=== PATIENT | male | born 2005 | race Caucasian/White ===

== ENCOUNTER 2024-02-26 14:38 | Emergency (ER) | payer MEDICAID, SELFPAY ==
[2024-02-26 14:50] VITALS: BP 132/79; PULSE 105; RESP 16; TEMP 37.9; O2SAT 98; BMI 19.2
--- NOTE | 2024-02-26 15:03 | ED.GENADULT ---
HPI - General Adult General Date Seen: 02/26/24 Chief complaint: Ear/Nose/Throat Problem Stated complaint: L ear pain Time Seen by Provider: 02/26/24 14:56 Source: patient Mode of arrival: ambulatory Limitations: no limitations History of Present Illness HPI narrative: Patient is a generally healthy 18-year-old, student at [employer], who presents for evaluation of left ear pain which has been present for a few days. He does note that it is feeling better today than it has been over the past couple of days. He has been taking occasional Tylenol. He specifically denies fever, congestion, sore throat, tooth pain, cough, shortness of breath or other symptoms. He said he had an ear infection 10 years ago and this feels similar. Related Data Home Medications ?Medication ?Instructions ?Recorded ?Confirmed doxycycline monohydrate PO .pm 02/26/24 Allergies Allergy/AdvReac Type Severity Reaction Status Date / Time No Known Drug Allergies Allergy Verified 02/26/24 14:49 Exam Narrative: Exam Narrative: Vital signs reviewed In general, alert, nontoxic Head: Normocephalic, atraumatic. Eyes: Sclera clear. Pupils equal and reactive. ENT: Mucous membranes moist. Throat is normal. TMs are normal bilaterally. There is a little bit of wax in the left canal but nonocclusive. Canal is otherwise normal. Dentition intact. He has a little bit of tenderness posteriorly to the ear on the left but there is no erythema or warmth. Neck: Supple without adenopathy. Heart: Regular rate and rhythm without murmur. Lungs: Clear. No increased work of breathing, crackles or wheezes. eurologic: Alert, conversant. Speech fluent, face symmetric. Moves all extremities equally. Skin: Warm, dry well perfused. Affect: Normal. Const: Vital Signs, click to edit/add: Vital Signs - 24 hr 02/26/24 14:50 Temperature 100.3 F H Pulse Rate [Pulse Oximeter] 105 H Respiratory Rate 16 Blood Pressure [Ri ght Upper Arm] 132/79 Pulse Oximetry 98 Oxygen Delivery Me thod Room Air Documenting provider has reviewed patient's vital signs: yes Course Course ED Course: At this time no evidence of a significant otitis media, reviewed that symptoms are likely viral I think supportive care with Motrin or Tylenol as appropriate at this time. If he significantly worsens, should be seen again, likewise if symptoms do not improve over the next week the ear should be rechecked. Vital Signs Vital signs: Initial Vital Signs Temperature 100.3 F H 02/26/24 14:50 Temperature Source Temporal Artery Scan 02/26/24 14:50 Pulse Rate 105 H 02/26/24 14:50 Respiratory Rate 16 02/26/24 14:50 Blood Pressure 132/79 02/26/24 14:50 Blood Pressure Mean 96 02/26/24 14:50 Blood Pressure Position Sitting 02/26/24 14:50 Pulse Oximetry 98 02/26/24 14:50 Oxygen Delivery Method Room Air 02/26/24 14:50 Vital Signs Temperature 100.3 F H 02/26/24 14:50 Pulse Rate 105 H 02/26/24 14:50 Respiratory Rate 16 02/26/24 14:50 Blood Pressure 132/79 02/26/24 14:50 Pulse Oximetry 98 02/26/24 14:50 Oxygen Delivery Method Room Air 02/26/24 14:50 Temperature 100.3 F H 02/26/24 14:50 Pulse Rate 105 H 02/26/24 14:50 Respiratory Rate 16 02/26/24 14:50 Blood Pressure 132/79 02/26/24 14:50 Pulse Oximetry 98 02/26/24 14:50 Oxygen Delivery Method Room Air 02/26/24 14:50 Discharge Plan Discharge Clinical Impression: Ear pain, left Patient Disposition: Home, Self-Care Condition: Stable Instructions: Earache (ED) Additional Instructions: Ibuprofen or Tylenol as needed. Your exam today is normal. If pain persists or worsens over the next week, recheck here or at [facility]. Return any time for severe pain, high fevers, or other worsening new symptoms. Prescriptions: No Action doxycycline monohydrate PO .pm Stand Alone Forms: Depopth Info Instructions
== END 2024-02-26 15:28 | disposition home or self-care (01) ==
LOC: ED 15:08
PROVIDERS: Emergency Provider Emergency Medicine
DX: H92.02 Otalgia, left ear (principal)
CPT/HCPCS: 99283